=== PATIENT | male | born 1950 | race Caucasian/White ===

== ENCOUNTER 2024-04-16 07:21 | Outpatient (CLI) | payer MEDICARE, SELFPAY ==
--- NOTE | ~2024-04-16 | US_ITS ---
RIGHT LOWER EXTREMITY VENOUS ULTRASOUND Ordering provider: Roc Astorga MD History: . PAD legs, R leg edema, femoral bruit . Comparison: None. FINDINGS: --COMMON FEMORAL: Patent and free of thrombus. Normal compressibility, phasic flow and augmentation. --PROXIMAL SUPERFICIAL FEMORAL: Patent and free of thrombus. Normal compressibility, phasic flow and augmentation. --DISTAL SUPERFICIAL FEMORAL: Patent and free of thrombus. Normal compressibility, phasic flow and au gmentation. --POPLITEAL: Patent and free of thrombus. Normal compressibility, phasic flow and augmentation. --POSTERIOR TIBIAL: Patent and free of thrombus. Normal compressibility, phasic flow and augmentation . IMPRESSION: Negative right lower extremity venous US. No deep vein thrombosis. Reviewed, dictated and finalized at location A.
--- NOTE | ~2024-04-16 | CT_ITS ---
EXAMINATION: CTA abd aorta runoff DATE: 04/16/2024 08:28 INDICATION: Peripheral arterial occlusive disease with right lower limb edema and femoral bruit TECHNIQUE: Computed tomographic angiography (CTA) of the abdominal, pelvis, and both lower extremitie s was performed with 150 mL Omnipaque 350 intravenous contrast. Automated exposure control and iterat lo reconstruction technique were employed. The dose-length product was 1080.43 mGy-cm. COMPARISON: None. FINDINGS: ABDOMINAL AORTA AND ITS BRANCHES: There is scattered nonhemodynamically significant atherosclerotic plaque along the normal caliber abd ominal aorta bleeding at the origins of the superior mesenteric, inferior mesenteric and bilateral re nal arteries. There is a mild, <50% stenosis along the more distal proximal superior mesenteric arter y resulting from small amount of noncalcified atherosclerotic plaque. There is a nonatherosclerotic p laque related mild stenosis at the origin of the celiac axis resulting from extrinsic compression as it passes below the jacky of the diaphragm. There are no aneurysms or dissection. PELVIC VASCULATURE: There are scattered small amounts of nonhemodynamically significant atherosclerotic plaque at the aravind ateral common, external and internal iliac arteries. No aneurysm or dissection. RIGHT LOWER EXTREMITY: Atherosclerotic plaque with 20% stenosis at the distal right common femoral artery extending into the origin of the right superficial femoral artery where there is a moderate 60% stenosis. Small amounts of scattered atherosclerotic plaque with mild, <50% stenosis along the right profunda femoral artery and with negligible stenosis along the more distal right superficial femoral artery. There is more p rominent atherosclerotic plaque along the right popliteal artery with several foci of moderate or sev ere stenosis, the most proximal measuring 80% with a second likely near occlusion stenosis at the lev el of the knee joint. There is essentially a trifurcation of the distal popliteal artery with scatter ed mild to moderate atherosclerotic plaque along the anterior tibial, posterior tibial and peroneal a rteries but with three-vessel runoff below the ankle. The distal right anterior tibial and peroneal a rteries are atretic with the right posterior tibial artery representing the dominant arterial supply to the foot. LEFT LOWER EXTREMITY: Atherosclerotic plaque with 40-50% stenosis at the distal left common femoral artery. Scattered ather osclerotic plaque along the left superficial and profunda femoral arteries, each with up to 40% steno sis. Atherosclerotic plaque along the left popliteal artery with severe stenosis along an approximate ly 5 cm long segment of the proximal [id number] artery which at the midpoint appears near occlusi ve. There is a small focus near level of the knee joint line with possible additional severe stenosis although more likely represents a moderate stenosis accentuated by streak artifact from calcified pl aque on the anterior and posterior margins of the vessel. Moderate to severe stenosis at the origin o f the anterior tibial artery which appears atretic more distally and moderate stenosis at the tibiope roneal trunk. There is additional scattered atherosclerotic plaque with mild to moderate stenosis luis ng the more distal anterior tibial, posterior tibial and peroneal arteries. There is three-vessel run off below the ankle. ADDITIONAL FINDINGS: Small calcified nodule at the right lung base along with a few scattered hepatic and splenic calcific ations, all consistent with old granulomatous disease. There is also mild bibasilar atelectasis. Hear t size is normal. No pericardial or pleural effusion. Calcified gallstones in the otherwise normal-ap pearing gallbladder. Pancreas and bilateral adrenal glands are normal. There are few small region of cortical scarring at both kidneys likely sequela prior infe
[2024-04-16 07:52] LABS: Estimated Glomerular Filt Rate > 60
== END 2024-04-16 07:22 | disposition home or self-care (01) ==
LOC: CHSIMG 07:25
PROVIDERS: PCP Internal Medicine; Visit Provider Internal Medicine
DX: I73.9 Peripheral vascular disease, unspecified (principal); R79.89 Other specified abnormal findings of blood chemistry; K80.20 Calculus of gallbladder without cholecystitis without obstruction
CPT/HCPCS: 75635; 93971; Q9967

== ENCOUNTER 2024-04-28 08:04 | Outpatient (CLI) | payer MEDICARE, SELFPAY ==
--- NOTE | 2024-04-28 08:12 | EST_ITS ---
Patient Info Name: Chino Patrick Age: 74 years : 1950 Gender: Male Ht: 71 in Wt: 191 lbs BSA: 2.10 m2 HR: 62 bpm BP: 150 / 82 mmHg Heart Rhythm: Sinus Rhythm Technical Quality: Good Exam Date: 04/28/2024 10:06 AM Exam Location: [facility] Patient Status: Outpatient Admit Date: 04/28/2024 Staff Ordering Physician: Roc Astorga MD Attending Provider: Roc Astorga MD Exam Type: CA stress jennifer w NM Study Info A regadenoson stress test was performed. History/Risk Factors Peripheral Arterial Disease (PAD): Yes Diabetes Mellitus: Type II Summary 1. 1. Negative lexiscan stress test for ischemic ST changes by ECG criteria. 2. 2. Baseline hypertension. 3. 3. Nuclear scan to follow and will be reported separately. Please correlate with it. Protocol: LEXISCAN Stress ECG Details Stage: REST Duration (min): 1 min : 4 sec HR (bpm): 60 SBP (mmHg): 150 DBP (mmHg): 82 Stage: REST Duration (min): 6 min : 18 sec HR (bpm): 61 SBP (mmHg): 150 DBP (mmHg): 82 Stage: STAGE 1 Duration (min): 0 min : 21 sec HR (bpm): 57 SBP (mmHg): 150 DBP (mmHg): 82 Stage: RECOVERY Duration (min): 0 min : 38 sec HR (bpm): 67 SBP (mmHg): 150 DBP (mmHg): 82 Stage: RECOVERY Duration (min): 1 min : 38 sec HR (bpm): 71 SBP (mmHg): 150 DBP (mmHg): 82 Stage: RECOVERY Duration (min): 2 min : 38 sec HR (bpm): 69 SBP (mmHg): 147 DBP (mmHg): 80 Stage: RECOVERY Duration (min): 3 min : 38 sec HR (bpm): 69 SBP (mmHg): 142 DBP (mmHg): 79 Stage: RECOVERY Duration (min): 4 min : 38 sec HR (bpm): 69 SBP (mmHg): 142 DBP (mmHg): 79 Stage: RECOVERY Duration (min): 5 min : 38 sec HR (bpm): 68 SBP (mmHg): 153 DBP (mmHg): 85 Stage: RECOVERY Duration (min): 6 min : 24 sec HR (bpm): 66 SBP (mmHg): 153 DBP (mmHg): 85 Rest HR: 61 bpm Peak HR: 73 bpm Rest Sys BP: 150 mmHg Peak Sys BP: 153 mmHg Max Pred HR: 145 bpm % Max Pred HR: 50 % Target HR: 123 bpm Max RPP: 11,169 bpm*mmHg BP Response: Normal blood pressure response Termination Reason: Completed Protocol Cardiac Symptoms: None Total Time: 0 min : 21 sec Rest Lam BP: 82 mmHg Peak Lam BP: 85 mmHg Total Dose: 0.4 mg Resting ECG Normal sinus rhythm, early precordial R/S transition. Stress ECG No abnormal ST/T wave changes. Arrhythmias No arrhythmias were observed during the examination. Report Signatures
--- NOTE | 2024-04-28 13:08 | WPDCARIOSTRE ---
Nuclear Stress Test INDICATIONS Indications: CAD PROCEDURE Procedure Performed: Myocardial Perf Spect-Multi Procedure: Patient underwent a lexiscan stress test and immediately was injected with 30.1 mCi of cardiolyte. Multiple tomographic images were obtained. These are of good quality. There is no perfusion defect with stress imaging. A separate resting images were obtained after patient was injected with 10.8 mCi of cardiolyte. Multiple tomographic images were obtained. These are of good quality. There is no perfusion defect with rest imaging. CONCLUSION Conclusion: 1. Normal myocardial perfusion imaging demonstrating no perfusion defects with stress or rest imaging. 2. No evidence of reversible ischemia. 3. Left ventriculogram demonstrates normal measured ejection fraction of 64% with no wall motion abnormalities. 4. TID score 0.99 is normal.
== END 2024-04-28 08:05 | disposition home or self-care (01) ==
LOC: CHSCARD 08:06
PROVIDERS: PCP Internal Medicine; Visit Provider Internal Medicine
DX: I25.10 Atherosclerotic heart disease of native coronary artery without angina pectoris (principal); E11.9 Type 2 diabetes mellitus without complications; E78.5 Hyperlipidemia, unspecified
CPT/HCPCS: 78452; 93017; A9502; J2785

== ENCOUNTER 2024-10-09 09:53 | Outpatient (CLI) | payer MEDICARE, SELFPAY ==
--- NOTE | ~2024-10-09 | MR_ITS ---
EXAMINATION: MR lumbar spine wo con DATE: 10/09/2024 10:33 INDICATION: Low back pain. TECHNIQUE: Magnetic resonance imaging (MRI) of the lumbar spine was performed without intravenous con trast. Sequences included sagittal T2-weighted FSE, sagittal T2-weighted FS FSE, sagittal T1-weighted FSE, and axial T2-weighted FSE. COMPARISON: None FINDINGS: There is 7 degrees dextrocurvature of lumbar spine. There are Schmorl's nodes at multiple l evels. There is severely decreased disc height at L4-L5 and L5-S1. The distal spinal cord signal inte nsity is normal. The conus medullaris is at L1. The following disc levels are specifically discussed: L1-L2: The disc is bulging. There is severe bilateral facet joint osteoarthritis. There is mild bilat eral neural foraminal stenosis. There is mild central canal stenosis. L2-L3: The disc is bulging and has an annular fissure. There is severe bilateral facet joint osteoart hritis. There is mild bilateral neural foraminal stenosis. There is mild central canal stenosis. L3-L4: The disc is bulging and has an annular fissure. There is severe bilateral facet joint osteoart hritis. There is mild right and moderate left neural foraminal stenosis. There is mild central canal stenosis. L4-L5: The disc is bulging and has an annular fissure. There is severe bilateral facet joint osteoart hritis. There is moderate bilateral neural foraminal stenosis. There is moderate central canal stenos is. L5-S1: The disc is bulging and has an annular fissure. There is severe bilateral facet joint osteoart hritis. There is mild bilateral neural foraminal stenosis. There is mild central canal stenosis. IMPRESSION: 1. Severe lumbar spondylosis. Reviewed, dictated and finalized at location A. [employer]
== END 2024-10-09 09:54 | disposition home or self-care (01) ==
PROVIDERS: PCP Internal Medicine; Visit Provider Internal Medicine
DX: M54.50 Low back pain, unspecified (principal); M43.06 Spondylolysis, lumbar region
CPT/HCPCS: 72148